=== PATIENT | female | born 1955 | race Caucasian/White ===

== ENCOUNTER 2021-06-28 08:11 | Inpatient (IN) ==
[~2021-06-28 08:11] MED LIST: Buffered Lidocaine 1% SYRIN 1 ml INTRADERM ONE; Famotidine IV 10 MG/ML 2 ml VIAL (20 mg) IV ONE; Lactated Ringers 1000 ml BAG 1,000 ML IV SCH
[2021-06-28] MEDS ORDERED: fentaNYL 100 mcg/2 ml 50 MCG/ML VIAL ONE (08:12)
[2021-06-28] MEDS ORDERED: Lidocaine 2% PF 5 ML VIAL ONE ×2 (08:12→09:48)
[2021-06-28] MEDS ORDERED: Midazolam 5 mg/5 ml VIAL 1 mg/ml 5 ml VIAL (5 mg) ONE (08:12)
[2021-06-28] MEDS ORDERED: ROPIVACAINE 5 MG/ML 30 ML BTL (0.5%) ONE ×2 (08:13→09:12)
[2021-06-28] MEDS ORDERED: Clindamycin 900 MG/D5W BAG 900 MG/50 ML BAG IVPB ONE (08:40)
[2021-06-28] MEDS ORDERED: Famotidine IV 10 MG/ML 2 ml VIAL (20 mg) ONE (08:41)
[2021-06-28 09:02] LABS: INR 1.09 (0.86-1.15)
[2021-06-28] MEDS ORDERED: Dexamethasone IV 4 MG/ML VIAL 1 ml VIAL ONE (09:48)
[2021-06-28] MEDS ORDERED: Ondansetron 4 mg VIAL 2 MG/ML 2 ml VIAL ONE ×2 (09:48→13:51)
[2021-06-28] MEDS ORDERED: Glycopyrrolate IV 0.2 MG/ML 1 ML VIAL ONE ×2 (10:29→11:08)
[2021-06-28] MEDS ORDERED: Morphine 2 MG/ML SYRINGE IV PRN (10:54)
[2021-06-28] MEDS ORDERED: diPHENhydraMINE IV 50 MG/ML 1 ml VIAL (BENADRYL) IV PRN (10:54)
[2021-06-28] MEDS ORDERED: Ondansetron 4 mg VIAL 2 MG/ML 2 ml VIAL IV PRN ×2 (10:54→11:21)
[2021-06-28] MEDS ORDERED: Magnesium Hydroxide LIQ 30 ML UDC PO PRN (10:54)
[2021-06-28] MEDS ORDERED: Lactulose 30 ml UDC PO PRN (10:54)
[2021-06-28] MEDS ORDERED: diPHENhydraMINE 25 mg TAB PO PRN (10:54)
[2021-06-28] MEDS ORDERED: Ondansetron ODT 4 mg TAB 4 MG TAB PO PRN (10:54)
[2021-06-28] MEDS ORDERED: Phenylephrine 40 mcg/mL 10mL (400mcg) SYRINGE ONE (11:08)
[2021-06-28] MEDS ORDERED: fentaNYL 100 mcg/2 ml 50 MCG/ML VIAL IV PRN (11:21)
[2021-06-28] MEDS ORDERED: Naloxone 0.4 mg VIAL 0.4 mg/ml 1 ml VIAL IV PRN (11:21)
[2021-06-28] MEDS ORDERED: Propofol 10 MG/ML 20 ML BTL ONE (11:33)
[2021-06-28] MEDS: Lactated Ringers 1000 ml BAG 1,000 ML IV SCH (14:36)
[2021-06-28] MEDS: Clindamycin 600 MG/D5W BAG 600 MG/50 ML BAG IV SCH (18:26)
[2021-06-28] MEDS: Magnesium Hydroxide LIQ 30 ML UDC PO SCH (20:26)
[2021-06-29] MEDS: Lactated Ringers 1000 ml BAG 1,000 ML IV SCH (03:00)
[2021-06-29] MEDS: Clindamycin 600 MG/D5W BAG 600 MG/50 ML BAG IV SCH ×2 (03:00→09:50)
[2021-06-29 06:16] LABS: Hematocrit 32 % (35-47); Hemoglobin 11.2 g/dL (12.0-16.0); Mean Platelet Volume 8.1 fL (7.4-10.4); Platelet Count 297 10^3/uL (150-450)
[2021-06-29 06:37] LABS: Calcium 9.1 mg/dL (8.6-10.3); EGFR African American 79.6 (>60); EGFR Non-African American 65.8 (>60); Potassium 3.6 mmol/L (3.5-5.0)
[2021-06-29] MEDS ORDERED: Vitamin THERAPEUTIC TAB PO SCH (09:00)
[2021-06-29] MEDS ORDERED: TRIAMTERENE HYDROCHLOROTHIAZID PO SCH (09:00)
[2021-06-29] MEDS: Magnesium Hydroxide LIQ 30 ML UDC PO SCH (09:51)
[2021-06-29 11:14] VITALS: BP 128/77
== END 2021-06-29 13:45 | disposition home or self-care (01) | DRG 302 ==
LOC: AA 08:11 → SSU 10:54
PROVIDERS: ADMIT Orthopaedic Surgery Adult Reconstructive Orthopaedic Surgery; ATTEND Internal Medicine